=== PATIENT | female | born 1955 | race Two or more races ===

== ENCOUNTER 2019-05-26 13:47 | Emergency (ER) | payer OTHER ==
[~2019-05-26] VITALS: Ht 175.3 cm; Wt 63.5 kg
== END 2019-05-26 16:00 | disposition home or self-care (01) ==
LOC: ER 13:47
DX: S60.211A Contusion of right wrist, initial encounter (principal); S60.212A Contusion of left wrist, initial encounter; R05 Cough; W18.09XA Striking against other object with subsequent fall, initial encounter; Y93.89 Activity, other specified; Y92.89 Other specified places as the place of occurrence of the external cause; Y99.8 Other external cause status